=== PATIENT | female | born 1955 | race Caucasian/White ===

== ENCOUNTER 2020-01-11 17:27 | Emergency (ER) | payer OTHER, SELFPAY ==
[~2020-01-11] VITALS: Ht 157.5 cm; Wt 89.4 kg
[~2020-01-11 17:27] MED LIST: ARMOUR THYROID PO; ASPI81EC PO; Armour Thyroid15 MG PO; CARB200 PO; CITA20 PO; CYCL10 PO; DOCU100 PO; ENOX40I SC; FURO40 PO; HYDMOR2 PO; HYDR10EL60 PO; LISI20 PO; METO25 PO; METO50ER PO; POTA10T PO; QUET200 PO; Seroquel50 MG PO; WOMEN'S 50+ DA1 EACH PO
[2020-01-11] MEDS ORDERED: EUTHYROX137 MC1 PO (19:08)
[2020-01-11] MEDS ORDERED: ATOR10 PO (19:08)
[2020-01-11] MEDS ORDERED: METFORMIN HCL500 M2 PO (19:08)
[2020-01-11] MEDS ORDERED: AMIT50 PO (19:09)
[2020-01-11] MEDS ORDERED: OMEGA-3 ACID ETH1 GM PO (19:09)
[2020-01-11] MEDS ORDERED: Zestril30 MG PO (19:09)
[2020-01-11] MEDS ORDERED: OMEP20ER PO (19:09)
[2020-01-11] MEDS ORDERED: METOPROLOL SUCC25 MG PO (19:10)
[2020-01-11] MEDS ORDERED: Citalopram HBr40 MG PO (19:10)
[2020-01-11] MEDS ORDERED: NEURONTIN300 MG PO (19:11)
== END 2020-01-11 19:10 | disposition home or self-care (01) ==
LOC: ER 17:27
DX: T18.0XXA Foreign body in mouth, initial encounter (principal); I11.0 Hypertensive heart disease with heart failure; I50.9 Heart failure, unspecified; J44.9 Chronic obstructive pulmonary disease, unspecified; F32.9 Major depressive disorder, single episode, unspecified; F25.9 Schizoaffective disorder, unspecified; Z88.2 Allergy status to sulfonamides; Z88.8 Allergy status to other drugs, medicaments and biological substances; Z79.899 Other long term (current) drug therapy; Z79.82 Long term (current) use of aspirin
CPT/HCPCS: 99283

== ENCOUNTER 2021-12-19 00:57 | Day surgery (SDC) | payer OTHER ==
[~2021-12-19 00:57] MED LIST changes: +AMIT50 PO; +ATOR10 PO; +Citalopram HBr40 MG PO; +EUTHYROX137 MC1 PO; +METFORMIN HCL500 M2 PO; +METOPROLOL SUCC25 MG PO; +NEURONTIN300 MG PO; +OMEGA-3 ACID ETH1 GM PO; +OMEP20ER PO; +Zestril30 MG PO
[2021-12-19] MEDS ORDERED: ALBU90OI INH (09:15)
[2021-12-19] MEDS ORDERED: Aspir 8181 MG PO (09:16)
[2021-12-19] MEDS ORDERED: GABA300 PO (09:16)
[2021-12-19] MEDS ORDERED: HYDROCHLOROTH12.5 MG PO (09:16)
[2021-12-19] MEDS ORDERED: LEVOTHYROXINE150 MC7 PO (09:17)
[2021-12-19] MEDS ORDERED: IPRAT-ALBUT 0.5-3 ML INH (09:17)
[2021-12-19] MEDS ORDERED: [UNRECOGNIZED DRUG - CODE] PO (09:17)
[2021-12-19] MEDS ORDERED: OLANZAPINE20 M2 PO (09:18)
[2021-12-19] MEDS ORDERED: Serevent Disku50 MCG INH (09:18)
== END 2021-12-19 23:00 | disposition home or self-care (01) ==
LOC: WOUND 00:57
DX: E11.621 Type 2 diabetes mellitus with foot ulcer (principal); L97.416 Non-pressure chronic ulcer of right heel and midfoot with bone involvement without evidence of necrosis; L97.516 Non-pressure chronic ulcer of other part of right foot with bone involvement without evidence of necrosis; T33.831A Superficial frostbite of right toe(s), initial encounter; I10 Essential (primary) hypertension; M79.671 Pain in right foot; F17.210 Nicotine dependence, cigarettes, uncomplicated; Z88.2 Allergy status to sulfonamides
CPT/HCPCS: 87070; 87075; 87147; 87205; A9270; G0463

== ENCOUNTER 2021-12-23 00:44 | Day surgery (SDC) | payer OTHER ==
[~2021-12-23 00:44] MED LIST changes: +ALBU90OI INH; +Aspir 8181 MG PO; +GABA300 PO; +HYDROCHLOROTH12.5 MG PO; +IPRAT-ALBUT 0.5-3 ML INH; +LEVOTHYROXINE150 MC7 PO; +OLANZAPINE20 M2 PO; +Serevent Disku50 MCG INH; +[UNRECOGNIZED DRUG - CODE] PO
== END 2021-12-23 23:46 | disposition home or self-care (01) ==
LOC: WOUND 00:44
DX: E11.621 Type 2 diabetes mellitus with foot ulcer (principal); L97.416 Non-pressure chronic ulcer of right heel and midfoot with bone involvement without evidence of necrosis; L97.516 Non-pressure chronic ulcer of other part of right foot with bone involvement without evidence of necrosis; I10 Essential (primary) hypertension; T33.831A Superficial frostbite of right toe(s), initial encounter; M79.671 Pain in right foot
CPT/HCPCS: 99406; A9270; G0463

== ENCOUNTER 2022-01-05 00:59 | Day surgery (SDC) | payer OTHER | END 2022-01-05 23:23 | disposition home or self-care (01) | LOC: WOUND 00:59 | DX: T33.831A Superficial frostbite of right toe(s), initial encounter (principal); X58.XXXA Exposure to other specified factors, initial encounter; E11.621 Type 2 diabetes mellitus with foot ulcer; L97.412 Non-pressure chronic ulcer of right heel and midfoot with fat layer exposed; L97.512 Non-pressure chronic ulcer of other part of right foot with fat layer exposed; I10 Essential (primary) hypertension | CPT/HCPCS: A9270; G0463 ==

== ENCOUNTER 2022-01-23 05:15 | Day surgery (SDC) | payer OTHER | END 2022-01-23 22:51 | disposition home or self-care (01) | LOC: WOUND 05:15 | DX: E11.621 Type 2 diabetes mellitus with foot ulcer (principal); L97.416 Non-pressure chronic ulcer of right heel and midfoot with bone involvement without evidence of necrosis; L97.515 Non-pressure chronic ulcer of other part of right foot with muscle involvement without evidence of necrosis; L97.516 Non-pressure chronic ulcer of other part of right foot with bone involvement without evidence of necrosis; T34.831 Frostbite with tissue necrosis of right toe(s); E11.51 Type 2 diabetes mellitus with diabetic peripheral angiopathy without gangrene; E11.40 Type 2 diabetes mellitus with diabetic neuropathy, unspecified; S91.201D Unspecified open wound of right great toe with damage to nail, subsequent encounter; S91.204D Unspecified open wound of right lesser toe(s) with damage to nail, subsequent encounter; X58.XXXD Exposure to other specified factors, subsequent encounter; I10 Essential (primary) hypertension | CPT/HCPCS: A9270; G0463 ==

== ENCOUNTER 2022-01-30 03:30 | Day surgery (SDC) | payer OTHER | END 2022-01-30 23:17 | disposition home or self-care (01) | LOC: WOUND 03:30 | DX: E11.621 Type 2 diabetes mellitus with foot ulcer (principal); L97.414 Non-pressure chronic ulcer of right heel and midfoot with necrosis of bone; L97.515 Non-pressure chronic ulcer of other part of right foot with muscle involvement without evidence of necrosis; E11.51 Type 2 diabetes mellitus with diabetic peripheral angiopathy without gangrene; E11.69 Type 2 diabetes mellitus with other specified complication; M86.171 Other acute osteomyelitis, right ankle and foot; E11.40 Type 2 diabetes mellitus with diabetic neuropathy, unspecified; X31.XXXS Exposure to excessive natural cold, sequela | CPT/HCPCS: A9270; G0463 ==

== ENCOUNTER 2022-02-06 08:00 | Day surgery (SDC) | payer OTHER | END 2022-02-06 23:59 | disposition home or self-care (01) | LOC: WOUND 08:00 | DX: E11.621 Type 2 diabetes mellitus with foot ulcer (principal); L97.416 Non-pressure chronic ulcer of right heel and midfoot with bone involvement without evidence of necrosis; L97.515 Non-pressure chronic ulcer of other part of right foot with muscle involvement without evidence of necrosis; L97.512 Non-pressure chronic ulcer of other part of right foot with fat layer exposed; T34.831 Frostbite with tissue necrosis of right toe(s); E11.51 Type 2 diabetes mellitus with diabetic peripheral angiopathy without gangrene; E11.40 Type 2 diabetes mellitus with diabetic neuropathy, unspecified; M86.171 Other acute osteomyelitis, right ankle and foot; S91.201D Unspecified open wound of right great toe with damage to nail, subsequent encounter; S91.204D Unspecified open wound of right lesser toe(s) with damage to nail, subsequent encounter; X58.XXXD Exposure to other specified factors, subsequent encounter; I10 Essential (primary) hypertension | CPT/HCPCS: 99406; G0463 ==

== ENCOUNTER 2022-02-13 01:33 | Day surgery (SDC) | payer OTHER | END 2022-02-13 22:58 | disposition home or self-care (01) | LOC: WOUND 01:33 | DX: E11.621 Type 2 diabetes mellitus with foot ulcer (principal); T33.831S Superficial frostbite of right toe(s), sequela; L97.516 Non-pressure chronic ulcer of other part of right foot with bone involvement without evidence of necrosis; I10 Essential (primary) hypertension; E07.9 Disorder of thyroid, unspecified; E11.51 Type 2 diabetes mellitus with diabetic peripheral angiopathy without gangrene; E11.69 Type 2 diabetes mellitus with other specified complication; M86.171 Other acute osteomyelitis, right ankle and foot | CPT/HCPCS: A9270; G0463 ==

== ENCOUNTER 2022-02-17 03:46 | Day surgery (SDC) | payer OTHER | END 2022-02-17 22:40 | disposition home or self-care (01) | LOC: HBO 03:46 | DX: T34.831 Frostbite with tissue necrosis of right toe(s) (principal); E11.621 Type 2 diabetes mellitus with foot ulcer; E11.51 Type 2 diabetes mellitus with diabetic peripheral angiopathy without gangrene; E11.40 Type 2 diabetes mellitus with diabetic neuropathy, unspecified; E11.69 Type 2 diabetes mellitus with other specified complication; M86.171 Other acute osteomyelitis, right ankle and foot; S91.201D Unspecified open wound of right great toe with damage to nail, subsequent encounter; S91.204D Unspecified open wound of right lesser toe(s) with damage to nail, subsequent encounter | CPT/HCPCS: 82947; 99406; G0277 ==

== ENCOUNTER 2022-02-18 00:38 | Day surgery (SDC) | payer OTHER | END 2022-02-18 22:43 | disposition home or self-care (01) | LOC: HBO 00:38 | DX: S91.201D Unspecified open wound of right great toe with damage to nail, subsequent encounter (principal); S91.204D Unspecified open wound of right lesser toe(s) with damage to nail, subsequent encounter; T34.831 Frostbite with tissue necrosis of right toe(s); X58.XXXD Exposure to other specified factors, subsequent encounter; E11.621 Type 2 diabetes mellitus with foot ulcer; M86.171 Other acute osteomyelitis, right ankle and foot; E11.40 Type 2 diabetes mellitus with diabetic neuropathy, unspecified; E11.51 Type 2 diabetes mellitus with diabetic peripheral angiopathy without gangrene | CPT/HCPCS: 82947; 99406; G0277 ==

== ENCOUNTER 2022-02-20 00:49 | Day surgery (SDC) | payer OTHER ==
[~2022-02-20 00:49] MED LIST changes: +CELEXA40 M1 PO; -Citalopram HBr40 MG PO; +EUTHYROX175 MCG PO; -LEVOTHYROXINE150 MC7 PO
== END 2022-02-20 22:48 | disposition home or self-care (01) ==
LOC: HBO 00:49
DX: E11.621 Type 2 diabetes mellitus with foot ulcer (principal); E11.69 Type 2 diabetes mellitus with other specified complication; E11.51 Type 2 diabetes mellitus with diabetic peripheral angiopathy without gangrene; M86.171 Other acute osteomyelitis, right ankle and foot; T34.831 Frostbite with tissue necrosis of right toe(s); S91.204D Unspecified open wound of right lesser toe(s) with damage to nail, subsequent encounter; S91.201D Unspecified open wound of right great toe with damage to nail, subsequent encounter; L97.418 Non-pressure chronic ulcer of right heel and midfoot with other specified severity
CPT/HCPCS: 73630; 82947; 99406; A9270; G0277; G0463

== ENCOUNTER 2022-02-20 01:21 | Day surgery (SDC) | payer OTHER ==
[~2022-02-20 01:21] MED LIST changes: -CELEXA40 M1 PO; +Citalopram HBr40 MG PO; -EUTHYROX175 MCG PO; +LEVOTHYROXINE150 MC7 PO
== END 2022-02-20 22:51 | disposition home or self-care (01) ==
LOC: WOUND 01:21
DX: E11.621 Type 2 diabetes mellitus with foot ulcer (principal); L97.516 Non-pressure chronic ulcer of other part of right foot with bone involvement without evidence of necrosis; E11.51 Type 2 diabetes mellitus with diabetic peripheral angiopathy without gangrene; E11.69 Type 2 diabetes mellitus with other specified complication; M86.171 Other acute osteomyelitis, right ankle and foot; E11.40 Type 2 diabetes mellitus with diabetic neuropathy, unspecified; T34.831 Frostbite with tissue necrosis of right toe(s)
CPT/HCPCS: A9270; G0463

== ENCOUNTER 2022-02-23 02:34 | Day surgery (SDC) | payer OTHER | END 2022-02-23 23:27 | disposition home or self-care (01) | LOC: HBO | DX: E11.621 Type 2 diabetes mellitus with foot ulcer (principal); E11.69 Type 2 diabetes mellitus with other specified complication; M86.171 Other acute osteomyelitis, right ankle and foot; E11.51 Type 2 diabetes mellitus with diabetic peripheral angiopathy without gangrene; F17.219 Nicotine dependence, cigarettes, with unspecified nicotine-induced disorders; T34.831A Frostbite with tissue necrosis of right toe(s), initial encounter; S91.201A Unspecified open wound of right great toe with damage to nail, initial encounter | CPT/HCPCS: 82947; 99406; G0277 ==

== ENCOUNTER 2022-02-24 20:46 | Emergency (ER) | payer OTHER ==
[~2022-02-24] VITALS: Ht 157.5 cm; Wt 68.0 kg
[2022-02-24 22:05] LABS: BASOPHILS ABSOLUTE AUTO 0.03 K/mm3 (0.00-0.23); BASOPHILS PERCENT AUTO 0 % (0-2); EOSINOPHILS ABSOLUTE AUTO 0.12 K/mm3 (0.00-0.68); EOSINOPHILS PERCENT AUTO 1 % (0-6); Hematocrit 35.7 % (33.0-51.0); Hemoglobin 11.9 g/dL (11.5-16.0); IMMATURE GRAN ABSOLUTE AUTO 0.03 K/mm3 (0.00-0.10); IMMATURE GRAN PERCENT AUTO 0 % (0-1); LYMPHOCYTES ABSOLUTE AUTO 2.33 K/mm3 (0.84-5.20); LYMPHOCYTES PERCENT AUTO 23 % (21-46); MONOCYTES ABSOLUTE AUTO 1.16 K/mm3 (0.16-1.47); MONOCYTES PERCENT AUTO 11 % (4-13); Mean Corpuscular HGB 29.6 pg (26.0-34.0); Mean Corpuscular HGB Conc 33.3 g/dL (31.5-36.5); Mean Corpuscular Volume 89 fL (80-100); Mean Platelet Volume 9.3 fL (9.1-12.4); NEUTROPHILS ABSOLUTE AUTO 6.67 K/mm3 (1.96-9.15); NEUTROPHILS PERCENT AUTO 65 % (41-73); Platelet Count 330 K/mm3 (150-400); RDW Coefficient Variation 16.2 % (11.7-14.2); RDW Standard Deviation 53.6 fL (35.1-46.3); Red Blood Cell Count 4.02 M/mm3 (3.80-5.20); White Blood Cell Count 10.34 K/mm3 (4.00-11.30)
[2022-02-24 22:28] LABS: Albumin, Blood 3.6 g/dL (3.4-5.0); Albumin/Globulin Ratio 0.8 (0.8-1.8); Bilirubin, Total 0.6 mg/dL (0.1-1.0); Bun/Creatinine Ratio 30.2 (12.0-20.0); Calcium, Blood 9.9 mg/dL (8.5-10.1); Creatinine, Blood 0.6 mg/dL (0.40-1.00); Globulin, Blood 4.8 g/dL (2.2-4.0); Potassium, Blood 3.8 mmol/L (3.5-5.5); Total Protein, Blood 8.4 g/dL (6.4-8.2)
[2022-02-25] MEDS ORDERED: HYDR1TAB94 PO (02:06)
== END 2022-02-25 02:55 | disposition home or self-care (01) ==
LOC: ER 20:46
PROVIDERS: Physician Assistant
DX: M86.9 Osteomyelitis, unspecified (principal); F17.210 Nicotine dependence, cigarettes, uncomplicated; J44.9 Chronic obstructive pulmonary disease, unspecified; I11.0 Hypertensive heart disease with heart failure; I50.9 Heart failure, unspecified
CPT/HCPCS: 36415; 73502; 73630; 80053; 83605; 85025; 96374; 99284-25; J3010; J3370; J7030; J7060

== ENCOUNTER 2022-03-04 08:00 | Day surgery (SDC) | payer OTHER ==
[~2022-03-04 08:00] MED LIST changes: +HYDR1TAB94 PO
[2022-03-04 10:12] LABS: Source, Urine Clean Catch
[2022-03-04 10:24] LABS: Appearance, Urine Clear (Clear); Bilirubin, Urine Neg (Neg); Blood, Urine Neg (Neg); Color, Urine Yellow (P-Yellow); Glucose Qualitative, Urine Neg (Neg); Ketones, Urine Neg (Neg); Leukocyte Esterase, Urine Neg (Neg); Nitrite, Urine Neg (Neg); Protein, Urine Neg (Neg); Specific Gravity, Urine 1.015 (1.003-1.022); Urobilinogen, Urine NORM (Normal); pH, Urine 6.5 (5.0-8.0)
== END 2022-03-04 23:59 | disposition home or self-care (01) ==
LOC: WOUND 08:00
PROVIDERS: Surgery
DX: E11.621 Type 2 diabetes mellitus with foot ulcer (principal); L97.516 Non-pressure chronic ulcer of other part of right foot with bone involvement without evidence of necrosis; E11.69 Type 2 diabetes mellitus with other specified complication; M86.171 Other acute osteomyelitis, right ankle and foot; E11.51 Type 2 diabetes mellitus with diabetic peripheral angiopathy without gangrene; T34.831 Frostbite with tissue necrosis of right toe(s); F17.219 Nicotine dependence, cigarettes, with unspecified nicotine-induced disorders; I10 Essential (primary) hypertension; E07.9 Disorder of thyroid, unspecified
CPT/HCPCS: 81003; A9270; G0463

== ENCOUNTER 2022-03-18 08:12 | Emergency (ER) | payer OTHER ==
[~2022-03-18] VITALS: Ht 167.6 cm; Wt 77.1 kg
[2022-03-18 08:56] LABS: BASOPHILS ABSOLUTE AUTO 0.03 K/mm3 (0.00-0.23); BASOPHILS PERCENT AUTO 0 % (0-2); EOSINOPHILS ABSOLUTE AUTO 0.03 K/mm3 (0.00-0.68); EOSINOPHILS PERCENT AUTO 0 % (0-6); Hematocrit 42.7 % (33.0-51.0); Hemoglobin 14.2 g/dL (11.5-16.0); IMMATURE GRAN ABSOLUTE AUTO 0.02 K/mm3 (0.00-0.10); IMMATURE GRAN PERCENT AUTO 0 % (0-1); LYMPHOCYTES ABSOLUTE AUTO 1.62 K/mm3 (0.84-5.20); LYMPHOCYTES PERCENT AUTO 16 % (21-46); MONOCYTES ABSOLUTE AUTO 1.06 K/mm3 (0.16-1.47); MONOCYTES PERCENT AUTO 11 % (4-13); Mean Corpuscular HGB 30.3 pg (26.0-34.0); Mean Corpuscular HGB Conc 33.3 g/dL (31.5-36.5); Mean Corpuscular Volume 91 fL (80-100); Mean Platelet Volume 9.1 fL (9.1-12.4); NEUTROPHILS PERCENT AUTO 72 % (41-73); Platelet Count 358 K/mm3 (150-400); RDW Coefficient Variation 14.3 % (11.7-14.2); RDW Standard Deviation 47.8 fL (35.1-46.3); Red Blood Cell Count 4.68 M/mm3 (3.80-5.20); White Blood Cell Count 9.86 K/mm3 (4.00-11.30)
[2022-03-18 10:17] LABS: Alanine Aminotransfer (ALT/SGP 17 U/L (12-78); Albumin, Blood 3.3 g/dL (3.4-5.0); Albumin/Globulin Ratio 0.7 (0.8-1.8); Alk Phos 75 U/L (50-136); Anion Gap 13 mmol/L (6-16); Aspartate Aminotrans (AST/SGOT 15 U/L (12-37); Bilirubin, Total 0.5 mg/dL (0.1-1.0); Blood Urea Nitrogen 19 mg/dL (8-24); Bun/Creatinine Ratio 22.5 (12.0-20.0); CO2, Blood 25 mmol/L (21-32); Chloride, Blood 102 mmol/L (98-108); Creatinine, Blood 0.85 mg/dL (0.40-1.00); Ethanol (Alcohol), Blood, Med <3 mg/dL; Globulin, Blood 4.8 g/dL (2.2-4.0); Glomerular Filtration Rate 75 (60-); Glucose, Blood 117 mg/dL (70-99); Potassium, Blood 3.2 mmol/L (3.5-5.5); Sodium, Blood 140 mmol/L (136-145); Total Protein, Blood 8.1 g/dL (6.4-8.2)
[2022-03-19] MEDS ORDERED: AMOCLA875 PO (19:15)
== END 2022-03-18 11:30 | disposition home or self-care (01) ==
LOC: ER 08:12
PROVIDERS: Emergency Medicine
DX: S70.02XA Contusion of left hip, initial encounter (principal); F15.10 Other stimulant abuse, uncomplicated; F32.A Depression, unspecified; I11.0 Hypertensive heart disease with heart failure; I50.9 Heart failure, unspecified; J44.9 Chronic obstructive pulmonary disease, unspecified; W18.30XA Fall on same level, unspecified, initial encounter; F17.200 Nicotine dependence, unspecified, uncomplicated; Z79.899 Other long term (current) drug therapy; Z79.84 Long term (current) use of oral hypoglycemic drugs; Z88.2 Allergy status to sulfonamides; Z88.8 Allergy status to other drugs, medicaments and biological substances
CPT/HCPCS: 71045; 73502; 80053; 85025; 93005; 93010; G0480; J7030

== ENCOUNTER 2022-03-19 16:28 | Inpatient (IN) | payer OTHER ==
[~2022-03-19] VITALS: Ht 157.5 cm; Wt 68.0 kg
[~2022-03-19 16:28] MED LIST changes: +CELEXA40 M1 PO; -Citalopram HBr40 MG PO; +EUTHYROX175 MCG PO; -LEVOTHYROXINE150 MC7 PO
[2022-03-19] MEDS ORDERED: AMOCLA875 PO (19:15)
[2022-03-19 20:47] LABS: U Amphetamine Screen Not Detected; U Barbituate Screen Not Detected; U Benzodiazapine Screen Not Detected; U Buprenorphine Screen Not Detected; U Cannabinoids Screen Not Detected; U Cocaine Screen Not Detected; U Methadone Screen Not Detected; U Methamphetamine Screen Not Detected; U Opiates Screen Not Detected; U Oxycodone Screen Not Detected; U Phencyclidine Screen Not Detected; U Propoxyphene Screen Not Detected
[2022-03-19 23:01] LABS: BASOPHILS ABSOLUTE AUTO 0.04 K/mm3 (0.00-0.23); BASOPHILS PERCENT AUTO 0 % (0-2); EOSINOPHILS ABSOLUTE AUTO 0.19 K/mm3 (0.00-0.68); EOSINOPHILS PERCENT AUTO 2 % (0-6); Hematocrit 35.1 % (33.0-51.0); IMMATURE GRAN ABSOLUTE AUTO 0.02 K/mm3 (0.00-0.10); IMMATURE GRAN PERCENT AUTO 0 % (0-1); LYMPHOCYTES ABSOLUTE AUTO 2.87 K/mm3 (0.84-5.20); LYMPHOCYTES PERCENT AUTO 30 % (21-46); MONOCYTES ABSOLUTE AUTO 1.25 K/mm3 (0.16-1.47); MONOCYTES PERCENT AUTO 13 % (4-13); Mean Corpuscular HGB 30.5 pg (26.0-34.0); Mean Corpuscular HGB Conc 34.2 g/dL (31.5-36.5); Mean Corpuscular Volume 89 fL (80-100); Mean Platelet Volume 9.2 fL (9.1-12.4); NEUTROPHILS ABSOLUTE AUTO 5.37 K/mm3 (1.96-9.15); NEUTROPHILS PERCENT AUTO 55 % (41-73); Platelet Count 300 K/mm3 (150-400); RDW Coefficient Variation 13.7 % (11.7-14.2); RDW Standard Deviation 44.6 fL (35.1-46.3); Red Blood Cell Count 3.94 M/mm3 (3.80-5.20); White Blood Cell Count 9.74 K/mm3 (4.00-11.30)
[2022-03-19 23:19] LABS: Albumin/Globulin Ratio 0.7 (0.8-1.8); Bilirubin, Total 0.4 mg/dL (0.1-1.0); Bun/Creatinine Ratio 21.7 (12.0-20.0); Calcium, Blood 9.7 mg/dL (8.5-10.1); Creatinine, Blood 1.06 mg/dL (0.40-1.00); Globulin, Blood 4.1 g/dL (2.2-4.0); Potassium, Blood 3.2 mmol/L (3.5-5.5); Total Protein, Blood 7.1 g/dL (6.4-8.2)
--- NOTE | 2022-03-19 23:33 | NUR ---
ADMIT NOTE 66 YR OLD FEMALE ADMITTED TO FLOOR FROM THE ED WITH DX OF OSTEOMYELITIS OF RIGHT FOOT. HX DM, AND HX TOES AMPUTATED. ALERT AND ORIENTED BUT VERY SLEEPY. ACCU CHK 97 AT THIS TOME. CALL LIGHT IN REACH.
--- NOTE | 2022-03-20 04:24 | NUR ---
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 HX DM. ALERT AND ORIENTED, BUT QUITE TIRED. ABLE TO ASNWER SOME QUESTIONS, BUT NOT ALL. WILL HAVE AM NURSE F/U FOR MED HX, ETC. HAS BEEN RESTING QUIETLY WITH EFW INTERRUPTIONS SINCE. CALL LIGHT IN REACH
[2022-03-20 04:54] LABS: BASOPHILS ABSOLUTE AUTO 0.03 K/mm3 (0.00-0.23); BASOPHILS PERCENT AUTO 0 % (0-2); EOSINOPHILS ABSOLUTE AUTO 0.15 K/mm3 (0.00-0.68); EOSINOPHILS PERCENT AUTO 2 % (0-6); Hemoglobin 12.7 g/dL (11.5-16.0); IMMATURE GRAN ABSOLUTE AUTO 0.02 K/mm3 (0.00-0.10); IMMATURE GRAN PERCENT AUTO 0 % (0-1); LYMPHOCYTES ABSOLUTE AUTO 2.18 K/mm3 (0.84-5.20); LYMPHOCYTES PERCENT AUTO 28 % (21-46); MONOCYTES PERCENT AUTO 13 % (4-13); Mean Corpuscular HGB 30.1 pg (26.0-34.0); Mean Corpuscular HGB Conc 33.4 g/dL (31.5-36.5); Mean Corpuscular Volume 90 fL (80-100); Mean Platelet Volume 9.3 fL (9.1-12.4); NEUTROPHILS ABSOLUTE AUTO 4.45 K/mm3 (1.96-9.15); NEUTROPHILS PERCENT AUTO 57 % (41-73); Platelet Count 310 K/mm3 (150-400); RDW Coefficient Variation 13.6 % (11.7-14.2); RDW Standard Deviation 44.8 fL (35.1-46.3); Red Blood Cell Count 4.22 M/mm3 (3.80-5.20); White Blood Cell Count 7.83 K/mm3 (4.00-11.30)
[2022-03-20 05:26] LABS: Bun/Creatinine Ratio 18.4 (12.0-20.0); Calcium, Blood 10.3 mg/dL (8.5-10.1); Creatinine, Blood 1.14 mg/dL (0.40-1.00); Potassium, Blood 3.4 mmol/L (3.5-5.5)
[2022-03-20] MEDS ORDERED: BUME1 PO (11:21)
[2022-03-20] MEDS ORDERED: Cleocin HCl150 MG PO (11:22)
[2022-03-20] MEDS ORDERED: TRAM50 PO (11:22)
--- NOTE | 2022-03-20 19:49 | NUR ---
SHIFT SUMMARY- PT ALERT AND ORIENTED, 1PA TO THE BATHROOM FOR HER SHOWER TODAY. IV INFILTRATED THIS AFTERNOON WHILE RUNNING PIP/TAZO. NO REDNESS, SWELLING AT THE INSERTION POINT NOTED AT THE TIME OF DC OF THE IV. NEW IV PLACED. PT HAS ORDER FOR NPO AT MIDNIGHT PRE SURGERY. PLAN IS FOR AMPUTATION TOMORROW WITH DR DHRUV POLLARD. PT IS AWARE. BEDSIDE REPORT COMPLETED WITH NIGHT RN, PT IN BED, CALL LIGHT IN REACH NO S&S OF DISTRESS NOTED AT THIS TIME. SPOKE TO DR GLOVER THIS SHIFT THE PT IS A SMOKER (ABOUT A PACK PER DAY PER THE PT STATEMENT) PT CURRENTLY HAS A [address]ATCH IN PL[address].
--- NOTE | 2022-03-21 06:20 | NUR ---
SHIFT SUMMARY PATIENT ALERT AND ORIENTED. MEDICATED PER EMAR FOR PAIN. HAD NO COMPLAINTS OF SHORTNESS OF BREATH. NO ACUTE ISSUES NOTED OVERNIGHT. CALL LIGHT WITHIN REACH. REPORT GIVEN TO ONCOMING RN.
--- NOTE | 2022-03-21 07:28 | NUR ---
RAPID COVID TEST RESULT IS NEGATIVE LOT [id number] EXP 05/13/22
--- NOTE | 2022-03-21 08:28 | NUR ---
03/21/22 0828 Pily Perez PT ON SCHEDULED ANTIBIOTICS
--- NOTE | 2022-03-21 19:31 | NUR ---
SHIFT SUMMARY- PT WENT TO SURGERY TODAY AND HAD A RIGHT BKA. POST OP VITALS HAVE IMPROVED SINCE THE PT RECIEVED HER PO HOME MEDICATIONS AFTER RETURNING FROM SURGERY. PT HAS USED A BED HOGUE SINCE SURGERY, SCHEDULED FOR PT/OT EVAL AND TREAT TOMORROW. PAIN SEEMS WELL MANAGED AT THIS TIME. PT RECIEVED PO TRAMADOL, CALLED DR GLOVER FOR MEDS FOR BREAKTHROUGH PAIN, IV FENTANYL ORDER PRN Q3. PT IV INFILTRATED POST OP AND WAS REPLACED. THE NEW ONE BEGAN BLEEDING THIS EVENING WHILE THE IV ABX WERE INFUSING. THE CAP WAS TIGHTENED AND THE IV FLUSHED WELL, IV ABX RESUMED. PT HAD A PARTIAL LINNEN CHANGE AT THAT TIME. DRESSING FROM SURGERY IS C/D/I AT THIS TIME. BEDSIDE REPORT COMPLETED WITH THE NIGHT RN, NO S&S OF DISTRESS NOTED AT THE TIME OF REPORT.
[2022-03-22 05:28] LABS: Bun/Creatinine Ratio 26.9 (12.0-20.0); Calcium, Blood 9.3 mg/dL (8.5-10.1); Creatinine, Blood 1.04 mg/dL (0.40-1.00); Potassium, Blood 3.5 mmol/L (3.5-5.5)
--- NOTE | 2022-03-22 16:30 | NUR ---
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 PT WAS NOTED TODAY TO HAVE SOME TOUNG MOVEMENTS THAT SEEMED ABNORMAL, SHE WOULD STICK HER TOUNG OUT AND HOLD IT THERE. WHEN ASKED ABOUT IT SHE STATED "I DON'T KNOW WHY IT DOES THAT." SPOKE TO DR GLOVER ABOUT IT AND SHE MADE SOME DOSE CHANGES ON SOME OF THE MEDS. PT MEDICATED T/O THE SHIFT FOR PAIN, PAIN APPEARS TO BE WELL MANAGED, THE PT STATED AT ON POINT TODAY SHE WAS "SUPRISED" SHE WAS FEELING "ANY PAIN AT ALL." THE PT STATED SHE USUALLY "DOESN'T FEEL PAIN." PT STATES HER PAIN IS 9/10 WHEN ASKED, SHE DOES NOT SEEM TO UNDERSTAND THE PAIN SCALE, NONVERBALLY HER PAIN APPEARS WELL MANAGED. PLAN AT THIS TIME IS FOR DISCHARGE TO SNF. PT IS A 2PA TO THE BSC FOR ALL BATHROOM NEEDS. PT DID HAVE A FULL SHOWER TODAY AND HER WOUND DRESSING WAS CHANGED BY DR POLLARD. PT CURRENTLY IN BED, CALL LIGHT IN REACH NO S&S OF DISTRESS NOTED AT THIS TIME WILL CTM AND PASS ON TO NIGHT RN IN BEDSIDE REPORT.
[2022-03-23 05:21] LABS: BASOPHILS ABSOLUTE AUTO 0.04 K/mm3 (0.00-0.23); BASOPHILS PERCENT AUTO 1 % (0-2); EOSINOPHILS ABSOLUTE AUTO 0.12 K/mm3 (0.00-0.68); EOSINOPHILS PERCENT AUTO 1 % (0-6); Hematocrit 37.4 % (33.0-51.0); Hemoglobin 12.2 g/dL (11.5-16.0); IMMATURE GRAN ABSOLUTE AUTO 0.02 K/mm3 (0.00-0.10); IMMATURE GRAN PERCENT AUTO 0 % (0-1); LYMPHOCYTES ABSOLUTE AUTO 2.68 K/mm3 (0.84-5.20); LYMPHOCYTES PERCENT AUTO 31 % (21-46); MONOCYTES ABSOLUTE AUTO 0.99 K/mm3 (0.16-1.47); MONOCYTES PERCENT AUTO 12 % (4-13); Mean Corpuscular HGB 30.4 pg (26.0-34.0); Mean Corpuscular HGB Conc 32.6 g/dL (31.5-36.5); Mean Corpuscular Volume 93 fL (80-100); Mean Platelet Volume 9.6 fL (9.1-12.4); NEUTROPHILS ABSOLUTE AUTO 4.77 K/mm3 (1.96-9.15); NEUTROPHILS PERCENT AUTO 55 % (41-73); Platelet Count 278 K/mm3 (150-400); RDW Coefficient Variation 13.8 % (11.7-14.2); RDW Standard Deviation 46.7 fL (35.1-46.3); Red Blood Cell Count 4.01 M/mm3 (3.80-5.20); White Blood Cell Count 8.62 K/mm3 (4.00-11.30)
[2022-03-23 07:47] LABS: Bun/Creatinine Ratio 25.9 (12.0-20.0); Calcium, Blood 9.4 mg/dL (8.5-10.1); Creatinine, Blood 1.12 mg/dL (0.40-1.00); Potassium, Blood 3.7 mmol/L (3.5-5.5)
--- NOTE | 2022-03-23 16:22 | NUR ---
DAY SHIFT SUMMARY 66 YR OLD FEMALE WITH OSTEOMYELITIS AND RECENT RT BKA. PT ON RA AND ACHS CBG CHECKES. CALL LIGHT WITHIN REACH AND ABLE TO CALL APPROPRIATE. PURWICK IN PLACE. PT EXPERIENCING FREQUENCY WITH URINATION. PT STATES SHE HAS BEEN TOLD SHE HAS SKIN CANCER ON HER LT INNER THIGH.
--- NOTE | 2022-03-24 05:54 | NUR ---
SHIFT SUMMARY: PT IS ALERT AND ORIENTED. PT IS CALM AND COOPERATIVE WITH CARE. PT CALLS APPROPRIATELY. PT DENIES PAIN, NAUSEA, VOMITING, AND SOB. PT INCONTINENT ON SEVERAL OCCASIONS, CHANGED AND CLEANED NEEDED. PT SLEPT INTERMITTENTLY THROUGHOUT THE NIGHT. NO ACUTE CHANGES OR COMPLICATIONS THIS SHIFT. WILL CONTINUE TO MONITOR.
[2022-03-24 12:20] LABS: Influenza A, PCR NEGATIVE (NEGATIVE); Influenza B, PCR NEGATIVE (NEGATIVE); Resp Syncytial Virus, PCR NEGATIVE (NEGATIVE); SARS-Cov-2 (COVID-19) PCR, MMC NEGATIVE (NEGATIVE)
[2022-03-24] MEDS ORDERED: Acetaminophen650 M1 PO (15:10)
[2022-03-24] MEDS ORDERED: JUVEN PACKET1 EAC3 PO (15:13)
[2022-03-24] MEDS ORDERED: HUMALOG KW100 UNIT/1 SC (15:14)
[2022-03-24] MEDS ORDERED: MELA3 PO (15:15)
[2022-03-24] MEDS ORDERED: NICO21TP TOP (15:16)
[2022-03-24] MEDS ORDERED: VISBIOME 112.51 EACH PO (15:16)
--- NOTE | 2022-03-24 18:40 | NUR ---
DAY SHIFT SUMMARY 66 YR OLD WITH BKA D/T OSTEOMYELITIS. 1PERSON ASSIST WITH [facility] BELT AND [facility]ALK[facility] TO [facility] PT ON RA, ADA DIET, ACHS CBG WITH NO COVERAGE NEEDED THIS SHIFT. PT APPROVED TO BE D/C'D TO [facility]. POSSIBLE D/C TOMORROW. NO ACUTE CHANGES THIS SHIFT. CALL LIGHT WITHIN REACH AND ABLE TO CALL APPROPRIATE.
--- NOTE | 2022-03-25 04:15 | NUR ---
SHIFT SUMMARY ADMITTED FOR OSTEOMYELITIS. RECENT BKA PERFORMED ON RIGHT LEG. FULL CODE. PLAN IS FOR DC TO [facility] TODAY. ACHS CHEMSTICKS. ADA DIET. ON RA. PIVOT W/FWW & GB - BSC. SHE LIVES W/HER SISTER. CONSULT IS DR. WELCH. DR. POLLARD PERFORMED THE SURGERY. SHE IS A&O X4, COOPERATIVE W/CARE. NO NEW CONCERNS.
[2022-03-25 12:35] LABS: SARS-Cov-2 (COVID-19) PCR, MMC NEGATIVE (NEGATIVE)
== END 2022-03-25 14:12 | DRG 617 ==
LOC: ER 16:28 → MEDS 21:35
PROVIDERS: Emergency Medicine; Internal Medicine; Orthopaedic Surgery; ADMIT Family Medicine
PROC: 0Y6H0Z2 Detachment at Right Lower Leg, Mid, Open Approach (ICD-10-PCS; principal; 2022-03-21 07:30)
DX: E11.69 Type 2 diabetes mellitus with other specified complication (principal); I13.0 Hypertensive heart and chronic kidney disease with heart failure and stage 1 through stage 4 chronic kidney disease, or unspecified chronic kidney disease; M86.171 Other acute osteomyelitis, right ankle and foot; L02.611 Cutaneous abscess of right foot; L03.115 Cellulitis of right lower limb; Z20.822 Contact with and (suspected) exposure to COVID-19; E11.22 Type 2 diabetes mellitus with diabetic chronic kidney disease; N18.2 Chronic kidney disease, stage 2 (mild); F32.A Depression, unspecified; F25.9 Schizoaffective disorder, unspecified; J44.9 Chronic obstructive pulmonary disease, unspecified; I50.9 Heart failure, unspecified; F17.210 Nicotine dependence, cigarettes, uncomplicated; E03.9 Hypothyroidism, unspecified; E11.628 Type 2 diabetes mellitus with other skin complications; Z88.2 Allergy status to sulfonamides; Z88.8 Allergy status to other drugs, medicaments and biological substances; Z71.6 Tobacco abuse counseling; Z79.899 Other long term (current) drug therapy; Z79.82 Long term (current) use of aspirin; Z79.84 Long term (current) use of oral hypoglycemic drugs; Z90.49 Acquired absence of other specified parts of digestive tract; Z98.890 Other specified postprocedural states; Z90.710 Acquired absence of both cervix and uterus
CPT/HCPCS: 0241U; 36415; 73590; 73630; 73720; 80048; 80053; 82947; 84100; 85025; 88307; 94760; 96365; 96366; 97110; 97162; 97166; 97530; 97535; 99285-25; A9270; A9579; G0378; J0360; J1100; J1650; J1885; J2250; J2370; J2405; J2543; J2704; J3010; J7030; J7040; U0004

== ENCOUNTER → 2022-04-22 | Outpatient (CLI) | payer OTHER ==
[~2022-04-22] MED LIST changes: +AMOCLA875 PO; +Acetaminophen650 M1 PO; +BUME1 PO; +Cleocin HCl150 MG PO; +HUMALOG KW100 UNIT/1 SC; +JUVEN PACKET1 EAC3 PO; +MELA3 PO; +NICO21TP TOP; +TRAM50 PO; +VISBIOME 112.51 EACH PO
== END | disposition home or self-care (01) ==
LOC: LAB SHORT 11:15 → PLD 11:15
DX: D04.72 Carcinoma in situ of skin of left lower limb, including hip (principal)
CPT/HCPCS: 88305

== ENCOUNTER → 2022-05-12 | Outpatient (CLI) | payer OTHER | LOC: LAB SHORT 07:35 | DX: D04.71 Carcinoma in situ of skin of right lower limb, including hip (principal) ==

== ENCOUNTER 2022-08-27 12:12 | Emergency (ER) | payer OTHER ==
[~2022-08-27] VITALS: Ht 157.5 cm; Wt 63.5 kg
[~2022-08-27 12:12] MED LIST changes: +ATORVASTATIN CA20 MG PO; +HYDCHL25 PO; +Hydroxyzine HCl25 MG; +IPRAT-ALBUT 0.5-3 ML IH; +Ventolin/Prove6.7 GM INH
[2022-08-27] MEDS ORDERED: OLAN10 PO (14:26)
== END 2022-08-27 14:33 | disposition home or self-care (01) ==
LOC: ER 12:12
DX: R44.0 Auditory hallucinations (principal); Z88.2 Allergy status to sulfonamides; Z88.8 Allergy status to other drugs, medicaments and biological substances; Z79.899 Other long term (current) drug therapy; I11.0 Hypertensive heart disease with heart failure; I50.9 Heart failure, unspecified; J44.9 Chronic obstructive pulmonary disease, unspecified; E11.9 Type 2 diabetes mellitus without complications; E03.9 Hypothyroidism, unspecified; F17.210 Nicotine dependence, cigarettes, uncomplicated
CPT/HCPCS: 99284

== ENCOUNTER 2022-09-01 11:52 | Emergency (ER) | payer OTHER ==
[~2022-09-01] VITALS: Ht 157.5 cm; Wt 65.8 kg
[~2022-09-01 11:52] MED LIST changes: +OLAN10 PO
[2022-09-01] MEDS ORDERED: OLAN20 MM (12:08)
[2022-09-01] MEDS ORDERED: Hydroxyzine HCl25 MG (12:09)
[2022-09-01 13:05] LABS: Source, Urine Straight Cath
[2022-09-01 13:08] LABS: Appearance, Urine Hazy (Clear); Bilirubin, Urine Neg (Neg); Blood, Urine Neg (Neg); Color, Urine Yellow (P-Yellow); Glucose Qualitative, Urine Neg (Neg); Ketones, Urine Neg (Neg); Leukocyte Esterase, Urine 2+ (Neg); Nitrite, Urine Neg (Neg); Protein, Urine 2+ (Neg); Specific Gravity, Urine 1.015 (1.003-1.022); Urobilinogen, Urine 1+ (Normal)
[2022-09-01 13:17] LABS: Bacteria Few /hpf; Red Blood Cells, Urine Not Seen /hpf (0-2); Squamous Epithelial Cells Mod /hpf (Few)
[2022-09-01 13:46] LABS: BASOPHILS ABSOLUTE AUTO 0.04 K/mm3 (0.00-0.23); BASOPHILS PERCENT AUTO 0 % (0-2); EOSINOPHILS ABSOLUTE AUTO 0.14 K/mm3 (0.00-0.68); EOSINOPHILS PERCENT AUTO 1 % (0-6); Hematocrit 38.4 % (33.0-51.0); Hemoglobin 13.4 g/dL (11.5-16.0); IMMATURE GRAN ABSOLUTE AUTO 0.02 K/mm3 (0.00-0.10); IMMATURE GRAN PERCENT AUTO 0 % (0-1); LYMPHOCYTES ABSOLUTE AUTO 3.71 K/mm3 (0.84-5.20); LYMPHOCYTES PERCENT AUTO 35 % (21-46); MONOCYTES ABSOLUTE AUTO 0.99 K/mm3 (0.16-1.47); MONOCYTES PERCENT AUTO 9 % (4-13); Mean Corpuscular HGB 30.7 pg (26.0-34.0); Mean Corpuscular HGB Conc 34.9 g/dL (31.5-36.5); Mean Corpuscular Volume 88 fL (80-100); Mean Platelet Volume 9.7 fL (9.1-12.4); NEUTROPHILS ABSOLUTE AUTO 5.66 K/mm3 (1.96-9.15); NEUTROPHILS PERCENT AUTO 54 % (41-73); Platelet Count 321 K/mm3 (150-400); RDW Coefficient Variation 12.4 % (11.7-14.2); RDW Standard Deviation 39.9 fL (35.1-46.3); Red Blood Cell Count 4.36 M/mm3 (3.80-5.20); White Blood Cell Count 10.56 K/mm3 (4.00-11.30)
[2022-09-01 13:47] LABS: U Amphetamine Screen Not Detected; U Barbituate Screen Not Detected; U Benzodiazapine Screen Not Detected; U Buprenorphine Screen Not Detected; U Cannabinoids Screen Not Detected; U Cocaine Screen Not Detected; U Methadone Screen Not Detected; U Methamphetamine Screen Not Detected; U Opiates Screen Not Detected; U Oxycodone Screen Not Detected; U Phencyclidine Screen Not Detected; U Propoxyphene Screen Not Detected
[2022-09-01 14:16] LABS: Alanine Aminotransfer (ALT/SGP 21 U/L (12-78); Albumin, Blood 3.2 g/dL (3.4-5.0); Albumin/Globulin Ratio 0.8 (0.8-1.8); Alk Phos 75 U/L (50-136); Anion Gap 4 mmol/L (6-16); Aspartate Aminotrans (AST/SGOT 21 U/L (12-37); Bilirubin, Total 0.6 mg/dL (0.1-1.0); Blood Urea Nitrogen 18 mg/dL (8-24); CO2, Blood 27 mmol/L (21-32); Chloride, Blood 104 mmol/L (98-108); Ethanol (Alcohol), Blood, Med <3 mg/dL; Globulin, Blood 4.1 g/dL (2.2-4.0); Glomerular Filtration Rate 98 (60-); Glucose, Blood 107 mg/dL (70-99); Sodium, Blood 135 mmol/L (136-145); Total Protein, Blood 7.3 g/dL (6.4-8.2)
[2022-09-01] MEDS ORDERED: Keflex250 MG PO (14:20)
== END 2022-09-01 18:19 | disposition home or self-care (01) ==
LOC: ER 11:52
PROVIDERS: Student in an Organized Health Care Education/Training Program
DX: F25.9 Schizoaffective disorder, unspecified (principal); N30.00 Acute cystitis without hematuria; E87.6 Hypokalemia; M79.604 Pain in right leg; I11.0 Hypertensive heart disease with heart failure; I50.9 Heart failure, unspecified; J44.9 Chronic obstructive pulmonary disease, unspecified; E11.9 Type 2 diabetes mellitus without complications; F17.210 Nicotine dependence, cigarettes, uncomplicated; Z89.511 Acquired absence of right leg below knee
CPT/HCPCS: 80053; 81001; 84443; 85025; A9270; G0480; J1885

== ENCOUNTER 2023-03-21 20:28 | Emergency (ER) | payer OTHER ==
[~2023-03-21] VITALS: Ht 157.5 cm; Wt 73.0 kg
[~2023-03-21 20:28] MED LIST changes: +ASPI81CH PO; +Amitriptyline H10 MG PO; +CHLO25A PO; +CHLO50 PO; +Calcium Carbon500 MG PO; +Hydroxyzine HCl25 MG PO; +Keflex250 MG PO; +METPRE4DP PO; +Neurontin 100100 MG PO; +OLAN20 MM; +TIZA4 PO
[2023-03-21 22:02] LABS: BASOPHILS ABSOLUTE AUTO 0.05 K/mm3 (0.00-0.23); BASOPHILS PERCENT AUTO 0 % (0-2); EOSINOPHILS ABSOLUTE AUTO 0.24 K/mm3 (0.00-0.68); EOSINOPHILS PERCENT AUTO 2 % (0-6); Hemoglobin 13.5 g/dL (11.5-16.0); IMMATURE GRAN ABSOLUTE AUTO 0.03 K/mm3 (0.00-0.10); IMMATURE GRAN PERCENT AUTO 0 % (0-1); LYMPHOCYTES ABSOLUTE AUTO 2.74 K/mm3 (0.84-5.20); LYMPHOCYTES PERCENT AUTO 23 % (21-46); MONOCYTES PERCENT AUTO 11 % (4-13); Mean Corpuscular HGB 31.5 pg (26.0-34.0); Mean Corpuscular HGB Conc 34.6 g/dL (31.5-36.5); Mean Corpuscular Volume 91 fL (80-100); Mean Platelet Volume 9.9 fL (9.1-12.4); NEUTROPHILS ABSOLUTE AUTO 7.36 K/mm3 (1.96-9.15); NEUTROPHILS PERCENT AUTO 63 % (41-73); Platelet Count 256 K/mm3 (150-400); RDW Coefficient Variation 13.6 % (11.7-14.2); RDW Standard Deviation 46.1 fL (35.1-46.3); Red Blood Cell Count 4.28 M/mm3 (3.80-5.20); White Blood Cell Count 11.72 K/mm3 (4.00-11.30)
[2023-03-21 22:21] LABS: Albumin, Blood 3.6 g/dL (3.4-5.0); Albumin/Globulin Ratio 0.9 (0.8-1.8); Bilirubin, Total 0.3 mg/dL (0.1-1.0); Bun/Creatinine Ratio 24.5 (12.0-20.0); Calcium, Blood 10.2 mg/dL (8.5-10.1); Creatinine, Blood 1.06 mg/dL (0.40-1.00); Globulin, Blood 3.9 g/dL (2.2-4.0); Potassium, Blood 3.4 mmol/L (3.5-5.5); Total Protein, Blood 7.5 g/dL (6.4-8.2)
[2023-03-22 00:48] VITALS: BP 146/72
== END 2023-03-22 01:30 | disposition home or self-care (01) ==
LOC: ER 20:28
PROVIDERS: Emergency Medicine
DX: R19.7 Diarrhea, unspecified (principal); F17.210 Nicotine dependence, cigarettes, uncomplicated; I11.0 Hypertensive heart disease with heart failure; I50.9 Heart failure, unspecified; E11.9 Type 2 diabetes mellitus without complications; J44.9 Chronic obstructive pulmonary disease, unspecified
CPT/HCPCS: 80053; 85025; 96360; 96361; 99284-25; J7030

== ENCOUNTER 2023-06-24 10:04 | Inpatient (IN) | payer OTHER ==
[~2023-06-24] VITALS: Ht 160 cm; Wt 70.0 kg
[2023-06-24 11:13] LABS: BASOPHILS ABSOLUTE AUTO 0.05 K/mm3 (0.00-0.23); BASOPHILS PERCENT AUTO 1 % (0-2); EOSINOPHILS ABSOLUTE AUTO 0.24 K/mm3 (0.00-0.68); EOSINOPHILS PERCENT AUTO 3 % (0-6); Hemoglobin 11.9 g/dL (11.5-16.0); IMMATURE GRAN ABSOLUTE AUTO 0.02 K/mm3 (0.00-0.10); IMMATURE GRAN PERCENT AUTO 0 % (0-1); LYMPHOCYTES ABSOLUTE AUTO 1.93 K/mm3 (0.84-5.20); LYMPHOCYTES PERCENT AUTO 21 % (21-46); MONOCYTES ABSOLUTE AUTO 0.94 K/mm3 (0.16-1.47); MONOCYTES PERCENT AUTO 10 % (4-13); Mean Corpuscular HGB 30.4 pg (26.0-34.0); Mean Corpuscular HGB Conc 32.2 g/dL (31.5-36.5); Mean Corpuscular Volume 95 fL (80-100); Mean Platelet Volume 9.8 fL (9.1-12.4); NEUTROPHILS ABSOLUTE AUTO 5.86 K/mm3 (1.96-9.15); NEUTROPHILS PERCENT AUTO 65 % (41-73); Platelet Count 282 K/mm3 (150-400); RDW Coefficient Variation 14.3 % (11.7-14.2); RDW Standard Deviation 49.7 fL (35.1-46.3); Red Blood Cell Count 3.91 M/mm3 (3.80-5.20); White Blood Cell Count 9.04 K/mm3 (4.00-11.30)
[2023-06-24 12:11] LABS: Albumin/Globulin Ratio 0.6 (0.8-1.8); Bilirubin, Total 0.4 mg/dL (0.1-1.0); Bun/Creatinine Ratio 14.7 (12.0-20.0); C-REACTIVE PROTEIN, EXT RANGE 1.5 mg/dL (0.000-0.300); Calcium, Blood 9.3 mg/dL (8.5-10.1); Creatinine, Blood 0.75 mg/dL (0.40-1.00); Globulin, Blood 4.9 g/dL (2.2-4.0); Total Protein, Blood 7.9 g/dL (6.4-8.2)
[2023-06-24 15:39] VITALS: BP 145/67
[2023-06-24 19:32] VITALS: BP 152/72
[2023-06-25] VITALS (18 sets, daily range): BP systolic 96–161; BP diastolic 36–83
--- NOTE | 2023-06-25 05:11 | NUR ---
SHIFT SUMMARY PRN TYLENOL GIVEN PER REQUEST FOR BACK PAIN, PT FELL ASLEEP SHORTLY AFTER. PT HAS BEEN NPO SINCE MIDNIGHT OTHER THAN A SMALL SIP OF WATER TO SWALLOW PILLS. NO OTHER COMPLAINTS OR EVENTS OVERNIGHT.
[2023-06-25 08:12] LABS: BASOPHILS ABSOLUTE AUTO 0.05 K/mm3 (0.00-0.23); BASOPHILS PERCENT AUTO 1 % (0-2); EOSINOPHILS ABSOLUTE AUTO 0.23 K/mm3 (0.00-0.68); EOSINOPHILS PERCENT AUTO 5 % (0-6); Hematocrit 36.1 % (33.0-51.0); IMMATURE GRAN ABSOLUTE AUTO 0.01 K/mm3 (0.00-0.10); IMMATURE GRAN PERCENT AUTO 0 % (0-1); LYMPHOCYTES ABSOLUTE AUTO 1.17 K/mm3 (0.84-5.20); LYMPHOCYTES PERCENT AUTO 24 % (21-46); MONOCYTES ABSOLUTE AUTO 0.62 K/mm3 (0.16-1.47); MONOCYTES PERCENT AUTO 13 % (4-13); Mean Corpuscular HGB 30.5 pg (26.0-34.0); Mean Corpuscular HGB Conc 33.2 g/dL (31.5-36.5); Mean Corpuscular Volume 92 fL (80-100); Mean Platelet Volume 9.5 fL (9.1-12.4); NEUTROPHILS ABSOLUTE AUTO 2.81 K/mm3 (1.96-9.15); NEUTROPHILS PERCENT AUTO 58 % (41-73); Platelet Count 272 K/mm3 (150-400); RDW Coefficient Variation 14.2 % (11.7-14.2); RDW Standard Deviation 48.2 fL (35.1-46.3); Red Blood Cell Count 3.94 M/mm3 (3.80-5.20); White Blood Cell Count 4.89 K/mm3 (4.00-11.30)
[2023-06-25 08:39] LABS: Bun/Creatinine Ratio 19.7 (12.0-20.0); Calcium, Blood 9.3 mg/dL (8.5-10.1); Creatinine, Blood 0.66 mg/dL (0.40-1.00); Potassium, Blood 3.9 mmol/L (3.5-5.5)
--- NOTE | 2023-06-25 11:43 | NUR ---
[facility] inTO Day Surgery FROM 340 FOR LEFT TRANSMETATARSAL AMPUTATION. Patient confirms NPO status and agrees with scheduled surgery. History, Chart, Medications and Allergies reviewed before start of procedure.Pre-Op teaching done. Pt verbalizes understanding.
--- NOTE | 2023-06-25 14:36 | NUR ---
LATE ENTRY/1350: RECEIVED REPORT FROM REC ROOM. 1357: PT RETURNED TO ROOM. VSS, PT GROGGY FROM SURG/SEDATION/ANESTHESIA, AROUSES EASILY. L FOOT WRAPPED WITH DIMITRI WRAP, C/D/I. PT DENIES PAIN.
--- NOTE | 2023-06-25 19:21 | NUR ---
SHIFT SUMMARY A&O X 4, VSS. PT HAS RESTED COMFORTABLY SINCE RETURNING FROM SURG. MEDICATED WITH TYLENOL FOR C/O L FOOT DISCOMFORT. APPETITE GOOD. IS PLEASANT & COOPERATIVE WITH ALL CARE. SURG DRESSING/WRAP C/D/I. USES BEDPAN FOR RESTROOM NEEDS.BED IN LOW POSITION, CALL LIGHT WITHIN REACH.
[2023-06-25 22:30] LABS: Vancomycin, Trough 17.5 ug/mL (5.0-10.0)
[2023-06-26 02:24] VITALS: BP 155/63
[2023-06-26 06:10] VITALS: BP 135/64
[2023-06-26 07:21] VITALS: BP 137/71
--- NOTE | 2023-06-26 09:00 | NUR ---
pt laying in bed, states she's having a lot of pain in her foot, tylenol was given with no relief per pt, a/ox2 to 3, cooperative with care, follows commands well, lungs are clear, dim in bases, resp even and unlabored, no cough noted, on r/a, hrr, has a rbka, left foot amputated, dressing in place, intact with no drainage noted, piv to lfa site is clear and patent, btx4 abd flat soft nontender, voids via bed altamirano at this time, skin has dressing to right lower ext, yara, darren, call light in reach.
--- NOTE | 2023-06-26 11:25 | NUR ---
PT worked with pt, dangled her at the side of the bed and left foot began bleeding, dressing was reinforced. new jeimy wrap placed, layed back in bed, no further bleeding noted. call light in reach.
[2023-06-26 14:49] VITALS: BP 127/61
--- NOTE | 2023-06-26 16:33 | NUR ---
no further bleeding on pt ft, started her on norco and is doing a bit better with pain, no further changes this shift. call light in reach, report given to Aixa CORDOVA.
[2023-06-26 19:27] VITALS: BP 142/59
[2023-06-27 05:14] VITALS: BP 118/59
[2023-06-27 06:05] LABS: BASOPHILS ABSOLUTE AUTO 0.02 K/mm3 (0.00-0.23); BASOPHILS PERCENT AUTO 0 % (0-2); EOSINOPHILS ABSOLUTE AUTO 0.27 K/mm3 (0.00-0.68); EOSINOPHILS PERCENT AUTO 6 % (0-6); Hematocrit 32.3 % (33.0-51.0); Hemoglobin 10.6 g/dL (11.5-16.0); IMMATURE GRAN PERCENT AUTO 0 % (0-1); LYMPHOCYTES ABSOLUTE AUTO 1.59 K/mm3 (0.84-5.20); LYMPHOCYTES PERCENT AUTO 34 % (21-46); MONOCYTES ABSOLUTE AUTO 0.75 K/mm3 (0.16-1.47); MONOCYTES PERCENT AUTO 16 % (4-13); Mean Corpuscular HGB Conc 32.8 g/dL (31.5-36.5); Mean Corpuscular Volume 94 fL (80-100); Mean Platelet Volume 9.9 fL (9.1-12.4); NEUTROPHILS PERCENT AUTO 44 % (41-73); Platelet Count 229 K/mm3 (150-400); RDW Coefficient Variation 13.9 % (11.7-14.2); RDW Standard Deviation 48.4 fL (35.1-46.3); Red Blood Cell Count 3.42 M/mm3 (3.80-5.20); White Blood Cell Count 4.73 K/mm3 (4.00-11.30)
--- NOTE | 2023-06-27 06:31 | NUR ---
SHIFT SUMMARY PRN PAIN MEDICATION GIVEN X1 WITH POSITIVE EFFECT. ONE LARGE BM. NO OTHER EVENTS THIS SHIFT.
[2023-06-27 07:21] VITALS: BP 145/66
--- NOTE | 2023-06-27 09:00 | NUR ---
pt laying in bed awake, watching tv, states she slept well last night, lungs are clear a bit dim in bases, on r/a, no cough noted, hrr, no edema noted, has a right bka and left foot amputation, dressing to left foot, no drainage noted this am, piv site is clear and patent, infusing tko, btx4, last bm was last night, voids using bedpan but has briefs on, skin c/w/d, except surgical site to left foot, maew, turns self in bed, darren, call light in reach.
--- NOTE | 2023-06-27 12:07 | NUR ---
pt resting in bed, no needs, states she's comfortable, call light in reach.
--- NOTE | 2023-06-27 18:26 | NUR ---
pt had an uneventful day, medicated for pain twice this shift. has been kept c/w/d/, no further needs, call light in reach.
[2023-06-27 19:58] VITALS: BP 121/72
[2023-06-28 03:44] VITALS: BP 123/61
--- NOTE | 2023-06-28 04:27 | NUR ---
SHIFT SUMMARY A/OX3, ROOM AIR. UNEVENTFUL NIGHT. NO PRN'S GIVEN. BED HOGUE, 2 PERSON TO STAND AND PIVOT. DRESSING FROM LEFT TMA CLEAN/DRY/INTACT.
[2023-06-28 04:55] LABS: BASOPHILS ABSOLUTE AUTO 0.04 K/mm3 (0.00-0.23); BASOPHILS PERCENT AUTO 1 % (0-2); EOSINOPHILS PERCENT AUTO 6 % (0-6); Hematocrit 31.9 % (33.0-51.0); Hemoglobin 10.6 g/dL (11.5-16.0); IMMATURE GRAN ABSOLUTE AUTO 0.01 K/mm3 (0.00-0.10); IMMATURE GRAN PERCENT AUTO 0 % (0-1); LYMPHOCYTES ABSOLUTE AUTO 2.31 K/mm3 (0.84-5.20); LYMPHOCYTES PERCENT AUTO 43 % (21-46); MONOCYTES ABSOLUTE AUTO 0.77 K/mm3 (0.16-1.47); MONOCYTES PERCENT AUTO 14 % (4-13); Mean Corpuscular HGB Conc 33.2 g/dL (31.5-36.5); Mean Corpuscular Volume 93 fL (80-100); Mean Platelet Volume 9.8 fL (9.1-12.4); NEUTROPHILS PERCENT AUTO 36 % (41-73); Platelet Count 240 K/mm3 (150-400); RDW Coefficient Variation 13.8 % (11.7-14.2); RDW Standard Deviation 47.2 fL (35.1-46.3); Red Blood Cell Count 3.42 M/mm3 (3.80-5.20); White Blood Cell Count 5.33 K/mm3 (4.00-11.30)
[2023-06-28 07:25] VITALS: BP 128/54
[2023-06-28 14:24] LABS: SARS-Cov-2 (COVID-19) PCR, MMC NEGATIVE (NEGATIVE)
[2023-06-28 15:55] VITALS: BP 129/58
--- NOTE | 2023-06-28 17:15 | NUR ---
PT DISCHARGED FROM THE UNIT. IV REMOVED. CALLED REPORT TO [facility]. PT LEFT UNIT VIA WITH TRANSPORT
== END 2023-06-28 17:10 | disposition hospice, inpatient (51) | DRG 240 ==
LOC: ER 10:04 → SURS 10:05 → MEDS 10:05
PROVIDERS: Family Medicine; Podiatrist Foot & Ankle Surgery; Student in an Organized Health Care Education/Training Program; ADMIT Internal Medicine
PROC: 0Y6N0Z5 Detachment at Left Foot, Complete 2nd Ray, Open Approach (ICD-10-PCS; 2023-06-25)
PROC: 0Y6N0Z6 Detachment at Left Foot, Complete 3rd Ray, Open Approach (ICD-10-PCS; 2023-06-25)
PROC: 0Y6N0Z7 Detachment at Left Foot, Complete 4th Ray, Open Approach (ICD-10-PCS; 2023-06-25)
PROC: 0Y6N0Z4 Detachment at Left Foot, Complete 1st Ray, Open Approach (ICD-10-PCS; principal; 2023-06-25 12:00)
DX: E11.52 Type 2 diabetes mellitus with diabetic peripheral angiopathy with gangrene (principal); I96 Gangrene, not elsewhere classified; M86.8X4 Other osteomyelitis, hand; F03.90 Unspecified dementia, unspecified severity, without behavioral disturbance, psychotic disturbance, mood disturbance, and anxiety; F25.9 Schizoaffective disorder, unspecified; I50.9 Heart failure, unspecified; J44.9 Chronic obstructive pulmonary disease, unspecified; I11.0 Hypertensive heart disease with heart failure; E11.69 Type 2 diabetes mellitus with other specified complication; E11.621 Type 2 diabetes mellitus with foot ulcer; E11.40 Type 2 diabetes mellitus with diabetic neuropathy, unspecified; E11.65 Type 2 diabetes mellitus with hyperglycemia; F32.A Depression, unspecified; E04.9 Nontoxic goiter, unspecified; F41.9 Anxiety disorder, unspecified; E03.9 Hypothyroidism, unspecified; Z88.2 Allergy status to sulfonamides; Z88.8 Allergy status to other drugs, medicaments and biological substances; Z79.84 Long term (current) use of oral hypoglycemic drugs; Z79.82 Long term (current) use of aspirin; Z79.890 Hormone replacement therapy; Z79.899 Other long term (current) drug therapy; Z90.49 Acquired absence of other specified parts of digestive tract; Z90.710 Acquired absence of both cervix and uterus; Z90.721 Acquired absence of ovaries, unilateral; Z89.511 Acquired absence of right leg below knee; Z87.891 Personal history of nicotine dependence
CPT/HCPCS: 36415; 73630; 80048; 80053; 80202; 82947; 84145; 85025; 85651; 86140; 88307; 88311; 93922; 94760; 96365; 96366; 96367; 96376; 97112; 97162; 97165; 97530; 99285-25; A9270; G0378; J0692; J1100; J1650; J1885; J2001; J2185; J2371; J2405; J2704; J3010; J3370; J7050; J7120; U0002